=== PATIENT | female | born 1985 | race Caucasian/White ===

== ENCOUNTER 2016-10-11 02:45 | Observation (INO) | payer OTHER ==
[2016-10-11] MEDS ORDERED: NS 1,000 ML IV ONE ×2 (03:33→04:39)
[2016-10-11 03:38] LABS: % IMMATURE GRANULYOCYTES 0.2 % (0.0-1.1); ABSOLUTE IMMATURE GRANULOCYTES 0.02 10^3/uL (0.00-0.10); ADD DIFF? NO; ADD MORPH? NO; ADD SCAN? NO; ATYPICAL LYMPHOCYTE FLAG 0 (0-99); FRAGMENT RBC FLAG 0 (0-99); HEMATOCRIT 42.9 % (38.0-47.0); HEMOGLOBIN 15.3 g/dL (12.6-16.3); LEFT SHIFT FLG 0 (0-99); LIPEMIA HEMOLYSIS FLAG 90 (0-99); MEAN CELL HEMOGLOBIN 32.4 pg (27.9-34.1); MEAN CELL HEMOGLOBIN CONCENTR. 35.7 g/dL (32.4-36.7); MEAN CELL VOLUME 90.9 fL (81.5-99.8); MEAN PLATELET VOLUME 9.2 fL (8.7-11.7); PLATELET CLUMPS FLAG 10 (0-99); PLATELET COUNT 292 10^3/uL (150-400); RED BLOOD CELL COUNT 4.72 10^6/uL (4.18-5.33); RED CELL DISTRIBUTION WIDTH 11.3 % (11.5-15.2)
[2016-10-11] MEDS ORDERED: ONDANSETRON 4 MG/2 ML VIAL IVP ONE (03:38)
[2016-10-11] MEDS ORDERED: HYDROmorphONE/DILAUDID 1 MG/ML SYR IVP ONE (03:39)
[2016-10-11] MEDS ORDERED: IOPAMIDOL (ISOVUE-300) 100 ML BTL IV ONE (03:41)
[2016-10-11 03:46] LABS: ALANINE AMINOTRANSFERASE 34 IU/L (9-52); ALBUMIN 4.3 g/dL (3.5-5.0); ALKALINE PHOSPHATASE 61 IU/L (38-126); ANION GAP 10 mEq/L (8-16); ASPARTATE AMINOTRANSFERASE 16 IU/L (14-46); BILIRUBIN,TOTAL 1.2 mg/dL (0.1-1.4); BILIRUBIN-CONJUGATED 0.3 mg/dL (0.0-0.5); BILIRUBIN-UNCONJUGATED 0.9 mg/dL (0.0-1.1); CALCIUM 9.5 mg/dL (8.5-10.4); CARBON DIOXIDE 23 mEq/l (22-31); CHLORIDE 104 mEq/L (97-110); CREATININE 0.8 mg/dL (0.6-1.0); GLOMERULAR FILTRATION RATE > 60; GLUCOSE 104 mg/dL (70-100); POTASSIUM 4.2 mEq/L (3.5-5.2); SODIUM 137 mEq/L (134-144); TOTAL PROTEIN 7.3 g/dL (6.3-8.2)
[2016-10-11 04:02] LABS: COLOR PALE YELLOW; LEUKOCYTE ESTERASE,URINE NEGATIVE (NEGATIVE); NITRITE,URINE NEGATIVE (NEGATIVE)
[2016-10-11] MEDS ORDERED: BUPIVACAINE 0.5% 30 ML SDV ONE (05:32)
[2016-10-11] MEDS ORDERED: SKIN ADHESIVE (DERMABOND) 1 EACH TP ONE (05:32)
[2016-10-11] MEDS ORDERED: HYDROCODONE/APAP 5/325 TAB PO PRN (05:39)
--- NOTE | 2016-10-11 05:55 | GHP ---
DATE OF ADMISSION: 10/11/2016 CHIEF COMPLAINT: Acute appendicitis. HISTORY OF PRESENT ILLNESS: The patient is a 30-year-old woman who presents to the emergency room w ith 36 hours of right lower quadrant pain. It has been unrelenting. It has progressed. Nothing govea s made it better. She had ultrasound followed by a CT which showed acute appendicitis with some franchesca e fluid in the pelvis. Her white count is 11.81. Her test is negative. PAST MEDICAL HISTORY: None. PAST SURGICAL HISTORY: Tonsillectomy and breast reduction. SOCIAL HISTORY: She works in [employer]. She is a nonsmoker. FAMILY HISTORY: Her father has ulcerative colitis. REVIEW OF SYSTEMS: A 10-point review of systems negative. PHYSICAL EXAMINATION: VITAL SIGNS: 37.5, 94.1, 130/81, 18, 97%. GENERAL: Pleasant, well-nourished, well-groomed woman, sitting up in gurney. Mom at bedside. HEENT: Normocephalic. No gross hearing deficits. Mucous membranes moist. Pupils equal and round. No scleral icterus. LUNGS: Clear to auscultation bilaterally. No increased work of breathing. CARDIAC: Regular rate. No peripheral edema. ABDOMEN: Bowel sounds present. She is soft. She is tender in the right lower quadrant. MUSCULOSKELETAL: Normal nails. SKIN: Warm and dry. Results reviewed per HPI. IMPRESSION/PLAN: The patient I a 30-year-old woman with acute appendicitis. I will take her into [facility] operating room for laparoscopic appendectomy. The risks and benefits, including, but not limited to, stroke, heart attack, , blood clots, infection, bleeding, damage to surrounding structures , were discussed. She had her questions answered to her satisfaction and signed the informed consen t. She will receive Invanz in the ER. /[id number]/MODL
[2016-10-11] MEDS ORDERED: fentaNYL 100 MCG/2 ML INJ ONE ×2 (05:58→06:24)
[2016-10-11] MEDS ORDERED: DEXAMETHASONE 4 MG/ML VIAL ONE (05:59)
[2016-10-11] MEDS ORDERED: PROPOFOL 200 MG/20 ML VIAL ONE (05:59)
[2016-10-11] MEDS ORDERED: ERTAPENEM 1 GM in NS 100 ML IV ONE (06:00)
[2016-10-11] MEDS ORDERED: MIDAZOLAM 2 MG/2 ML VIAL ONE (06:00)
[2016-10-11] MEDS ORDERED: PROPOFOL/EMULSION 500 MG/50 ML BOTTLE IV ONE (06:00)
--- NOTE | 2016-10-11 06:17 | EDPHY ---
H & P Stated Complaint: R flank pain x36h, now "ballooning" and moving, nausea, loose BMs Time Seen by Provider: 10/11/16 03:31 HPI/ROS: HPI The patient presents with right lower quadrant abdominal pain for the last 1 day. It started slowly, is described as both a stabbing and cramping pain, it does not radiate. It is associated with frequent loose stools and anorexia. She has not had a fever or any vomiting. She has no prior history of similar pain. She has never had pain like this before. The pain is worse with walking. REVIEW OF SYSTEMS Constitutional: No fever, no chills. Eyes: No discharge. ENT: No sore throat. Cardiovascular: No chest pain, no palpitations. Respiratory: No cough, no shortness of breath. Gastrointestinal: See HPI Genitourinary: No hematuria. Musculoskeletal: No back pain. Skin: No rashes. Neurological: No headache. PMHx: Status post tonsillectomy Family history: Father with ulcerative colitis PHYSICAL General Appearance: Alert, no distress Eyes: Pupils equal and round no pallor or injection ENT, Mouth: Mucous membranes moist Respiratory: There are no retractions, lungs are clear to auscultation Cardiovascular: Regular rate and rhythm Gastrointestinal: Abdomen is soft, slightly distended, with tenderness in the right lower quadrant, Rovsing sign is present Neurological: A&O, moves all extremities Skin: Warm and dry, no rashes Musculoskeletal: Neck is supple non tender Extremities: symmetrical, full range of motion Psychiatric: Patient is oriented X 3, there is no agitation Source: Patient - Personal History LMP (Females 10-55): 8-14 Days Ago Current Tetanus/Diphtheria Vaccine: Yes Current Tetanus Diphtheria and Acellular Pertussis (TDAP): Yes Tetanus Vaccine Date: 2007 - Medical/Surgical History Hx Asthma: No Hx Chronic Respiratory Disease: No Hx Diabetes: No Hx Cardiac Disease: No Hx Renal Disease: No Hx Cirrhosis: No Hx Alcoholism: No Hx HIV/AIDS: No Hx Splenectomy or Spleen Trauma: No Other PMH: denies - Social History Smoking Status: Never smoked Constitutional: Initial Vital Signs Temperature (C) 36.9 C 10/11/16 02:48 Heart Rate 98 10/11/16 02:48 Respiratory Rate 16 10/11/16 02:48 Blood Pressure 133/90 H 10/11/16 02:48 O2 Sat (%) 95 10/11/16 02:48 O2 Delivery Mode Room Air Allergies/Adverse Reactions: codeine Allergy (Verified 10/11/16 02:52) Home Medications: Medication Instructions Recorded Amitriptyline HCl 10/11/16 Lexapro 10/11/16 Medical Decision Making - Diagnostics Imaging: Right lower quadrant ultrasound demonstrates 2.3 cm dilated appendix verses terminal ileum, discussed with Dr. Espinoza of Radiology. CT scan abdomen pelvis with IV contrast demonstrates acute appendicitis with free fluid in the pelvis, discussed with Dr. Espinoza of Radiology. ED Course/Re-evaluation: The patient was given IV fluids and pain medications in the emergency room with some improvement of her symptoms. Labs were checked and revealed a leukocytosis of approximately 11,000. Ultrasound was performed which demonstrated quite enlarged appendix verses terminal ileum. Because of the diagnostic uncertainty, CT scan was performed which confirmed the diagnosis of acute appendicitis. Surgery was consulted, Dr. Pretty Mejia came to the emergency room to evaluate the patient. She plans to take the patient to the operating room. We will keep her NPO, give her antibiotics. I have answered all of her questions and her family's questions. Differential Diagnosis: This is a 30-year-old healthy patient who presents from home with 1-2 days of right lower quadrant abdominal pain associated with anorexia and loose stools. Differential diagnosis includes appendicitis, gastroenteritis, colitis, ovarian cyst or torsion. - Data Points Laboratory Results: Laboratory Results 10/11/16 03:25 10/11/16 03:25 10/11/16 10/11/16 10/11/16 03:25 03:25 03:25 WBC 11.81 10^3/uL H 10^3/uL (3.80-9.50) RBC 4.72 10^6/uL 10^6/uL (4.18-5.33) Hgb 15.3 g/dL g/dL (12.6-16.3) Hct 42.9 % % (38.0-47.0) MCV 90.9 fL fL (81.5-99.8) MCH 32.4 pg pg (27.9-34.1) MCHC 35.7 g/dL g/dL (32.4-36.7) RDW 11.3 % L % (11.5-15.2) Plt Count 292 10^3/uL 10^3/uL (150-400) MPV 9.2 fL fL (8.7-11.7) Neut % (Auto) 81.7 % H % (39.3-74.2) Lymph % (Auto) 9.2 % L % (15.0-45.0) [place] % (Auto) 8.5 % % (4.5-13.0) Eos % (Auto) 0.2 % L % (0.6-7.6) Baso % (Auto) 0.2 % L % (0.3-1.7) Nucleat RBC Rel Count 0.0 % % (0.0-0.2) Absolute Neuts (auto) 9.66 10^3/uL H 10^3/uL (1.70-6.50) Absolute Lymphs (auto) 1.09 10^3/uL 10^3/uL (1.00-3.00) Absolute Monos (auto) 1.00 10^3/uL H 10^3/uL (0.30-0.80) Absolute Eos (auto) 0.02 10^3/uL L 10^3/uL (0.03-0.40) Absolute Basos (auto) 0.02 10^3/uL 10^3/uL (0.02-0.10) Absolute Nucleated RBC 0.00 10^3/uL 10^3/uL (0-0.01) Immature Gran % 0.2 % % (0.0-1.1) Immature Gran # 0.02 10^3/uL 10^3/uL (0.00-0.10) Sodium 137 mEq/L mEq/L (134-144) Potassium 4.2 mEq/L mEq/L (3.5-5.2) Chloride 104 mEq/L mEq/L (97-110) Carbon Dioxide 23 mEq/l mEq/l (22-31) Anion Gap 10 mEq/L mEq/L (8-16) BUN 8 mg/dL mg/dL (7-23) Creatinine 0.8 mg/dL mg/dL (0.6-1.0) Estimated GFR > 60 Glucose 104 mg/dL H mg/dL (70-100) Calcium 9.5 mg/dL mg/dL (8.5-10.4) Total Bilirubin 1.2 mg/dL mg/dL (0.1-1.4) Conjugated Bilirubin 0.3 mg/dL mg/dL (0.0-0.5) Unconjugated Bilirubin 0.9 mg/dL mg/dL (0.0-1.1) AST 16 IU/L IU/L (14-46) ALT 34 IU/L IU/L (9-52) Alkaline Phosphatase 61 IU/L IU/L (38-126) Total Protein 7.3 g/dL g/dL (6.3-8.2) Albumin 4.3 g/dL g/dL (3.5-5.0) Lipase 53.0 IU/L IU/L (23-300) Beta HCG, Qual NEGATIVE Urine Color Urine Appearance Urine pH Ur Specific [place] Urine Protein Urine Ketones Urine Blood Urine Nitrate Urine Bilirubin Urine Urobilinogen Ur Leukocyte Esterase Ur Culture Indicated? Urine Glucose 10/11/16 03:20 WBC RBC Hgb Hct MCV MCH MCHC RDW Plt Count MPV Neut % (Auto) Lymph % (Auto) [place] % (Auto) Eos % (Auto) Baso % (Auto) Nucleat RBC Rel Count Absolute Neuts (auto) Absolute Lymphs (auto) Absolute Monos (auto) Absolute Eos (auto) Absolute Basos (auto) Absolute Nucleated RBC Immature Gran % Immature Gran # Sodium Potassium Chloride Carbon Dioxide Anion Gap BUN Creatinine Estimated GFR Glucose Calcium Total Bilirubin Conjugated Bilirubin Unconjugated Bilirubin AST ALT Alkaline Phosphatase Total Protein Albumin Lipase Beta HCG, Qual Urine Color PALE YELLOW Urine Appearance CLEAR Urine pH 6.0 (5.0-7.5) Ur Specific [place] 1.004 (1.002-1.030) Urine Protein NEGATIVE (NEGATIVE) Urine Ketones 1+ H (NEGATIVE) Urine Blood NEGATIVE (NEGATIVE) Urine Nitrate NEGATIVE (NEGATIVE) Urine Bilirubin NEGATIVE (NEGATIVE) Urine Urobilinogen NEGATIVE EU EU (0.2-1.0) Ur Leukocyte Esterase NEGATIVE (NEGATIVE) Ur Culture Indicated? NOT INDICATED (NI) Urine Glucose NEGATIVE (NEGATIVE) Medications Given: Discontinued Medications Hydromorphone HCl (Dilaudid) 1 mg IVP EDNOW ONE Stop: 10/11/16 03:40 Last Admin: 10/11/16 03:40 Dose: 1 mg Sodium Chloride (Ns) 1,000 mls @ 0 mls/hr IV ONCE ONE PRN Reason: Wide Open Stop: 10/11/16 03:34 Last Admin: 10/11/16 03:40 Dose: 1,000 mls Sodium Chloride (Ns) 1,000 mls @ 0 mls/hr IV ONCE ONE PRN Reason: Wide Open Stop: 10/11/16 04:40 Last Admin: 10/11/16 05:22 Dose: 1,000 mls Ondansetron HCl (Zofran) 4 mg IVP EDNOW ONE Stop: 10/11/16 03:39 Last Admin: 10/11/16 03:40 Dose: 4 mg Departure - Departure Disposition: To OP Cath/Surgery Referrals: Leandra Zuniga MD [Primary Care Provider] - As per Instructions
[2016-10-11] MEDS ORDERED: KETOROLAC 30 MG/1 ML SDV ONE (06:24)
[2016-10-11] MEDS ORDERED: SUGAMMADEX SODIUM 200 MG/2 ML VIAL IVP ONE (06:32)
--- NOTE | 2016-10-11 07:22 | POSTOPPROG ---
Post Op Note Date of Operation: 10/11/16 Surgeon: Pretty Mejia Anesthesiologist: alexandre Anesthesia: GET(General Endotracheal) Pre-op Diagnosis: acute appendicitis Post-op Diagnosis: same Indication: 30 yo with acute appendicitis Procedure: lap appy Findings: inflamed appendix Inf/Abcess present in the surg proc area at time of surgery?: No EBL: Minimal Specimen(s): appendix
[2016-10-11] MEDS: D5W 1/2 NS W/ 20 KCl/L 1,000 ML IV SCH ×2 (08:06→20:55)
--- NOTE | 2016-10-11 08:21 | GOP ---
DATE OF OPERATION: 10/11/2016 SURGEON: Pretty Mejia MD ANESTHESIA: General. ANESTHESIOLOGIST: Riaz Kaufman MD. PREOPERATIVE DIAGNOSIS: Acute appendicitis. POSTOPERATIVE DIAGNOSIS: Acute appendicitis. PROCEDURE PERFORMED: Laparoscopic appendectomy. FINDINGS: SPECIMENS: Appendix. ESTIMATED BLOOD LOSS: 5 cc. INDICATIONS: The patient is a 30-year-old with abdominal pain x36 hours with CT diagnosed acute miguel a endicitis. DESCRIPTION OF PROCEDURE: The patient was brought into the operating room, placed supine on the tab le. General anesthesia was administered. Her abdomen was prepped and draped in the usual sterile f ashion. I infiltrated all sites with 0.5% Marcaine prior to making incisions. I made an incision a t her umbilicus. I elevated it. I inserted the Veress needle. It passed the hanging drop test. H er abdomen insufflated easily to a pressure of 15 mmHg. I placed a 5 mm trocar with the camera at t his site. Under direct vision, I placed a 5 mm suprapubic trocar and a 10 mm trocar in the left low er quadrant. Omentum fully encased her appendix. I gently peeled this back from the appendix. I c ould visualize the terminal ileum, cecum, and appendix. The appendix was curled back on itself so t hat the tip and the base met. The mesoappendix was extremely thickened. The appendix was extremely dilated as well. I lifted the mesoappendix, and I carefully began to dissect it, paying careful at tention not to affect the terminal ileum or the cecum. Once I had an area free, I was able to peel the tip away from the base. I then could transect the base of the appendix with an Endo-DENILSON white l oad. The appendix was placed in an EndoCatch bag and retrieved via the 10 mm trocar. Hemostasis wa s achieved on the mesoappendix with the Harmonic Scalpel. The abdomen was inspected and no injuries noted. The fascia at the 10 mm site was closed with 0 Vicryl. Skin closed with 4-0 Monocryl. Ga mabond applied. She was awakened in the operating room, was extubated, transferred to PACU in sta e condition. /[id number]/MODL
[2016-10-11] MEDS: KETOROLAC 15 MG/1 ML SDV IVP PRN ×3 (13:08→23:55)
[2016-10-11] MEDS: ONDANSETRON 4 MG/2 ML VIAL IVP PRN ×3 (13:18→23:55)
--- NOTE | 2016-10-11 15:27 | SOAPPROG ---
SOAP Progress Note Assessment/Plan: Assessment: 30yo F POD#0 s/p lap appy IV pain meds - transition to oral Regular diet Wean O2 Home in am Seen with Dr Mejia S: feeling less distended than admission, pain controlled O: laying in bed, comfortable, mother at bedside no increased WOB nasal canula +BS, softly distended. nontender Objective: Vital Signs Temp Pulse Resp BP Pulse Ox 36.9 C 86 20 91/61 L 94 10/11/16 12:58 10/11/16 12:58 10/11/16 12:58 10/11/16 12:58 10/11/16 12:58 10/10/16 10/11/16 10/12/16 05:59 05:59 05:59 Intake Total 1999 900 Output Total 310 Balance 1999 590
[2016-10-11] MEDS: SENNOSIDES/DOCUSATE SODIUM TAB PO SCH (20:46)
[2016-10-11] MEDS: ACETAMINOPHEN 325 MG TAB PO PRN (20:49)
[2016-10-11] MEDS ORDERED: AMITRIPTYLINE HCL 10 MG TAB PO SCH (21:00)
[2016-10-11] MEDS ORDERED: MAGNESIUM HYDROXIDE 30 ML UDCUP PO PRN (21:00)
[2016-10-11] MEDS ORDERED: BISACODYL 10 MG SUPP PR PRN (21:00)
[2016-10-11] MEDS ORDERED: LACTULOSE 20 GM/30 ML UDCUP PO PRN (21:00)
[2016-10-11] MEDS ORDERED: POLYETHYLENE GLYCOL 3350 17 GM PKT PO PRN (21:00)
[2016-10-12] MEDS: ONDANSETRON 4 MG/2 ML VIAL IVP PRN (06:09)
[2016-10-12] MEDS: KETOROLAC 15 MG/1 ML SDV IVP PRN (06:09)
[2016-10-12 07:35] VITALS: BP 114/62; PULSE 82; RESP 15; TEMP 98.1; O2SAT 99
[2016-10-12] MEDS: SENNOSIDES/DOCUSATE SODIUM TAB PO SCH (07:49)
[2016-10-12] MEDS: ACETAMINOPHEN 325 MG TAB PO PRN (07:50)
[2016-10-12] MEDS: D5W 1/2 NS W/ 20 KCl/L 1,000 ML IV SCH (07:50)
--- NOTE | 2016-10-12 08:55 | SOAPPROG ---
SOAP Progress Note Assessment/Plan: Assessment: POD # 1 s/p lap appy Still with headache after contrast Ready to go home F/U Adeline Lay PA-C 1 week S: Passing flatus, Overall improved Abdomen soft, slight distension, incisions cdi Plan: 10/12/16 08:54 Objective: Vital Signs Temp Pulse Resp BP Pulse Ox 36.7 C 82 15 114/62 99 10/12/16 07:32 10/12/16 07:32 10/12/16 07:32 10/12/16 07:32 10/12/16 07:32 10/11/16 10/12/16 10/13/16 05:59 05:59 05:59 Intake Total 1999 6952 Output Total 0 Balance 1999 7652 ICD10 Worksheet Patient Problems: Problems Problem Status Onset Acute appendicitis Acute - ICD10 Problem Qualifiers (1) Acute appendicitis Qualifiers: Acute appendicitis type: A
[2016-10-12] MEDS ORDERED: ESCITALOPRAM OXALATE 10 MG TAB PO SCH (09:00)
== END 2016-10-12 10:45 | disposition home or self-care (01) ==
LOC: F1N 08:54
PROVIDERS: ADMIT Surgery; ATTEND Surgery
PROC: 0DTJ4ZZ Resection of Appendix, Percutaneous Endoscopic Approach (ICD-10-PCS; principal; 2016-10-11 06:06)
DX: K35.80 Unspecified acute appendicitis (principal)
CPT/HCPCS: 44970; 74177; 76705; G0378; 96374; J1100; J1170; J1335; J1885; J2250; J2405; J2704; J3010; Q9967